=== PATIENT | female | born 1995 | race Caucasian/White ===

== ENCOUNTER 2019-09-06 08:55 | Emergency (ER) | payer MEDICAID ==
[~2019-09-06] VITALS: Ht 160 cm; Wt 52.0 kg
[2019-09-06 09:10] VITALS: BP 115/68
== END 2019-09-06 11:20 | disposition home or self-care (01) ==
LOC: ER 08:55
DX: R51 Headache (principal); Y93.89 Activity, other specified; V49.50XA Passenger injured in collision with unspecified motor vehicles in traffic accident, initial encounter; Y92.410 Unspecified street and highway as the place of occurrence of the external cause
CPT/HCPCS: 71045; 99284

== ENCOUNTER 2024-11-21 19:35 | Emergency (ER) | payer OTHER ==
[~2024-11-21] VITALS: Ht 170.2 cm; Wt 73.0 kg
[2024-11-21 19:47] VITALS: O2SAT 99
[2024-11-21] MEDS: ONDANSETRON 4MG ODT PO ONE (20:04)
[2024-11-21] MEDS: ACETAMINOPHEN 325MG TABLET PO ONE (20:04)
[2024-11-21 20:49] LABS: BASOPHILS % 0.5 % (0.0-2.0); EOSINOPHILS % 0.3 % (0.0-5.0); HEMATOCRIT. 39.9 % (36.0-48.0); HEMOGLOBIN. 13.3 g/dL (12.0-16.0); LYMPHOCYTES % 61.6 % (20.0-50.0); MEAN CORPUSCULAR HEMOGLOBIN 30.4 pg (28.0-32.0); MEAN CORPUSCULAR HGB CONC 33.4 g/dL (31.0-37.0); MEAN CORPUSCULAR VOLUME 90.9 fL (81.0-99.0); MEAN PLATELET VOLUME 9.2 fl (7.4-10.4); MONOCYTES % 11.6 % (2.0-8.0); PLATELET 273 x1000/uL (130-400); RED BLOOD CELL COUNT 4.39 mill/uL (4.2-5.4); RED CELL DISTRIBUTION WIDTH 14.2 % (11.6-14.6); WHITE BLOOD COUNT 3.4 x1000/uL (4.5-11.0)
[2024-11-21 20:52] LABS: CARBON DIOXIDE 29 mEq/L (21-32); CHLORIDE 103 mEq/L (98-107); SODIUM 141 mEq/L (136-145)
[2024-11-21 20:53] LABS: CALCIUM 8.9 mg/dL (8.7-10.4)
[2024-11-21 20:57] LABS: CREATININE 0.7 mg/dL (0.6-1.0); GLUCOSE 102 mg/dL (70-105)
[2024-11-21 20:58] LABS: HCG SCREEN NEGATIVE; UREA NITROGEN BLOOD 5 mg/dL (9-23)
[2024-11-21 20:59] LABS: ALANINE AMINOTRANSFERASE 18 IU/L (10-49)
[2024-11-21 21:00] LABS: ALBUMIN 4.2 g/dL (3.2-4.8); ASPARTATE AMINOTRANSFERASE 20 IU/L (<34); BILIRUBIN TOTAL 0.3 mg/dL (0.1-1.0); PROTEIN TOTAL 7.9 g/dL (6.0-8.3)
[2024-11-21] MEDS ORDERED: ONDA-239 PO (21:11)
[2024-11-21] MEDS: METOCLOPRAMIDE HCL 10MG TABLET PO ONE (21:36)
[2024-11-21 21:40] VITALS: BP 104/71; PULSE 98; RESP 18; TEMP 36.9; O2SAT 98
[2024-11-21 22:56] LABS: INFLUENZA TYPE A Presumptive Negative (Pres. Neg.); INFLUENZA TYPE B Presumptive Negative (Pres. Neg.)
== END 2024-11-21 21:40 | disposition home or self-care (01) ==
LOC: ER 19:35
DX: B34.9 Viral infection, unspecified (principal); Z20.822 Contact with and (suspected) exposure to COVID-19
CPT/HCPCS: 99284; 87426; 80053; 84703; 83690; 85025; 87804 ×2; 36415; J8597; Q0162